=== PATIENT | male | born 1955 | race Native Hawaiian/Other Pacific Islander ===

== ENCOUNTER 2023-01-10 13:10 | Emergency (ER) | payer OTHER ==
[~2023-01-10] VITALS: Ht 175.3 cm; Wt 81.2 kg
[2023-01-10 13:59] LABS: PLATELET COUNT 221 K/uL (142-355)
[2023-01-10 14:00] LABS: POTASSIUM 4.2 mmol/L (3.6-5.2)
[2023-01-10] MEDS ORDERED: DIGO0.2549 PO (15:16)
[2023-01-10] MEDS ORDERED: TAMS0.4C PO (15:17)
[2023-01-10] MEDS ORDERED: TRAZ100T PO ×2 (15:17→15:18)
[2023-01-10] MEDS ORDERED: BENZTROPINE0.5 MG PO (15:20)
[2023-01-10] MEDS ORDERED: DIVALPROEX500 M1 PO (15:24)
[2023-01-10] MEDS ORDERED: ELIQUIS STARTER5 MG PO (15:26)
[2023-01-10] MEDS ORDERED: HALO10TA5 PO (15:26)
[2023-01-10] MEDS ORDERED: HALO5INJ3 IM (15:27)
[2023-01-10] MEDS ORDERED: MELATONIN EXTRA10 MG PO (15:28)
[2023-01-10] MEDS ORDERED: METF500T PO (15:29)
== END 2023-01-10 14:35 | disposition still patient (30) ==
LOC: ED 13:10
PROVIDERS: Family Medicine
DX: F20.9 Schizophrenia, unspecified (principal); F31.9 Bipolar disorder, unspecified
CPT/HCPCS: 36415; 80053; 81002; 85027; 87635; 93005; 99283; U0003